=== PATIENT | female | born 1940 | race Two or more races ===

== ENCOUNTER 2023-07-08 10:01 | Emergency (ER) | payer MEDICARE ==
[~2023-07-08] VITALS: Ht 162.6 cm; Wt 72.6 kg
[2023-07-08] MEDS ORDERED: EPINEPHRINE (1:10,000) SYRINGE 1 MG/10 ML DISP.SYRIN ONE (10:42)
[2023-07-08] MEDS ORDERED: LORAZEPAM INJ 2 MG/ML VIAL ONE (11:16)
[2023-07-08 13:24] VITALS: BP 0/0
[2023-07-08] MEDS ORDERED: AMIODARONE 150 MG/3 ML VIAL IV ONE (15:17)
[2023-07-08] MEDS ORDERED: EPINEPHRINE (1:10,000) SYRINGE 1 MG/10 ML DISP.SYRIN IVP ONE (15:17)
[2023-07-08] MEDS ORDERED: SODIUM BICARBONATE SYR 50 MEQ/50 ML DISP.SYRIN IV ONE (15:17)
== END 2023-07-08 13:25 ==
LOC: ER 10:06
DX: I46.9 Cardiac arrest, cause unspecified (principal); N93.9 Abnormal uterine and vaginal bleeding, unspecified
CPT/HCPCS: 99291; 92950; 31500; 36430; J0171; J3490; J7030; J0282; J2060; P9016